=== PATIENT | male | born 1990 | race Caucasian/White ===

== ENCOUNTER 2019-10-20 01:07 | Emergency (ER) | payer SELFPAY ==
--- NOTE | 2019-10-20 01:57 | ER ---
Nurse's Notes [facility] Name: Enrique Fuentes Age: 29 yrs Sex: Male : 1990 Arrival Date: 10/20/2019 Time: 01:07 Bed 18 Private MD: Diagnosis: Presentation: 10/19 01:17 Chief complaint: Patient states: I started having pain in my right testicle about 30 tl1 minutes ago. I think I have a testicular torsion. Coronavirus screen: Proceed with normal triage. Patient denies a cough. Patient denies shortness of breath or difficulty breathing. Patient denies measured and/or subjective temperature greater than 100.4F prior to today's visit. Patient denies travel on a cruise ship or to a country the [facility] currently lists as an affected area. Patient denies contact with known and/or suspected case of COVID-19. Ebola Screen: Patient negative for fever greater than or equal to 101.5 degrees Fahrenheit, and additional compatible Ebola Virus Disease symptoms Patient denies exposure to infectious person. Patient denies travel to an Ebola-affected area in the 21 days before illness onset. Initial Sepsis Screen: Does the patient meet any 2 criteria? No. Patient's initial sepsis screen is negative. Does the patient have a suspected source of infection? No. Patient's initial sepsis screen is negative. Risk Assessment: Do you want to hurt yourself or someone else? Patient reports no desire to harm self or others. Onset of symptoms was October 20, 2019. 01:17 Method Of Arrival: Ambulatory tl1 01:17 Acuity: RASHID 3 tl1 Historical: - Allergies: 01:20 No Known Allergies; tl1 - PMHx: 01:20 Anxiety; paranoia; tl1 - PSHx: 01:20 None; tl1 - Immunization history:: Adult Immunizations up to date. - Social history:: Smoking status: Patient reports the use of cigarette tobacco products, smokes one pack cigarettes per day. Patient uses street drugs, marijuana. - Family history:: not pertinent. Screenin:30 Abuse screen: Denies threats or abuse. Denies injuries from another. Nutritional mg2 screening: No deficits noted. Tuberculosis screening: No symptoms or risk factors identified. Fall Risk None identified. Total Flowers Fall Scale indicates No Risk (0-24 pts). Assessment: 01:20 General: Appears in no apparent distress. uncomfortable, Behavior is calm, cooperative, rr5 appropriate for age. 01:20 Pain: Complains of pain in testicle Quality of pain is described as aching, Pain began rr5 suddenly, 30 min ago. Is intermittent. Neuro: Level of Consciousness is awake, alert, obeys commands, Oriented to person, place, time, situation. Cardiovascular: Capillary refill < 3 seconds Patient's skin is warm and dry. Respiratory: Airway is patent Respiratory effort is even, unlabored, Respiratory pattern is regular, symmetrical. GI: No signs and/or symptoms were reported involving the gastrointestinal system. : Reports Scrotal pain: sudden onset. EENT: No signs and/or symptoms were reported regarding the EENT system. Derm: Skin is intact, is healthy with good turgor, Skin temperature is warm. Musculoskeletal: Circulation, motion, and sensation intact. Capillary refill < 3 seconds. 01:56 Reassessment: patient stated I feel fine now, I don't want to continue the ultrasound rr5 procedure. I want to go home now. CN aware, explained for the AMA, patient signed and agreed. 02:35 Reassessment: patient came back, ambulatory awake and oriented. awaiting for ultrasound rr5 procedure. Vital Signs: 01:19 BP 120 / 88; Pulse 85; Resp 16; Temp 98.2(O); Pulse Ox 98% ; Weight 95.25 kg; Height 5 tl1 ft. 11 in. (180.34 cm); Pain 2/10; 01:19 Body Mass Index 29.29 (95.25 kg, 180.34 cm) tl1 ED Course: 01:07 Patient arrived in ED. ds1 01:10 Bebeto Abdalla MD is Attending Physician. fanta 01:14 Gordy Nevarez, RN is Primary Nurse. rr5 01:19 Triage completed. tl1 01:20 Patient has correct armband on for positive identification. rr5 01:21 Arm band placed on right wrist. tl1 01:55 No provider procedures requiring assistance completed. Patient did not have IV access rr5 during this emergency room visit. 02:29 Primary Nurse role handed off by Gordy Nevarez, RN tl1 02:33 Gordy Nevarez, RN is Primary Nurse. rr5 Administered Medications: No medications were administered Outcome: 01:55 AMA AMA form signed rr5 01:55 Condition: stable 01:55 Discharge instructions given to patient, Instructed on AMA Demonstrated understanding of AMA 02:08 Patient left the ED. rr5 03:04 Patient left the ED. tl1 Signatures: Bebeto Abdalla MD MD cha Sanford, Demi ds1 Elinor Berrios RN RN tl1 Wilbert Porras RN RN mg2 Gordy Nevarez RN RN rr5 Corrections: (The following items were deleted from the chart) 02:01 01:56 Reassessment: patient stated I feel fine now, I don't want to continue the rr5 ultrasound procedure. I want to go home now. CN aware, explained for the AMA, patient signed and agreed. mg2
--- NOTE | 2019-10-20 01:57 | EDPHYS ---
Physician Documentation [facility] Name: Enrique Fuentes Age: 29 yrs Sex: Male : 1990 Arrival Date: 10/20/2019 Time: 01:07 Bed 18 Private MD: ED Physician Bebeto Abdalla HPI: 10/19 01:23 This 29 yrs old Male presents to ER via Ambulatory with complaints of fanta Testicular Pain. 01:23 The patient presents with scrotal pain, tenderness, that is moderate, of the right fanta testicle. Onset: The symptoms/episode began/occurred just prior to arrival. Modifying factors: The symptoms are alleviated by nothing, the symptoms are aggravated by nothing. Associated signs and symptoms: The patient has no apparent associated signs or symptoms. Severity of symptoms: At their worst the symptoms were mild, moderate, in the emergency department the symptoms are unchanged. The patient has not experienced similar symptoms in the past. Historical: - Allergies: 01:20 No Known Allergies; tl1 - PMHx: 01:20 Anxiety; paranoia; tl1 - PSHx: 01:20 None; tl1 - Immunization history:: Adult Immunizations up to date. - Social history:: Smoking status: Patient reports the use of cigarette tobacco products, smokes one pack cigarettes per day. Patient uses street drugs, marijuana. - Family history:: not pertinent. ROS: 01:23 Constitutional: Negative for fever, chills, and weight loss, Eyes: Negative for injury, fanta pain, redness, and discharge, ENT: Negative for injury, pain, and discharge, Neck: Negative for injury, pain, and swelling, Cardiovascular: Negative for chest pain, palpitations, and edema, Respiratory: Negative for shortness of breath, cough, wheezing, and pleuritic chest pain, Abdomen/GI: Negative for abdominal pain, nausea, vomiting, diarrhea, and constipation, Back: Negative for injury and pain, MS/Extremity: Negative for injury and deformity, Skin: Negative for injury, rash, and discoloration, Neuro: Negative for headache, weakness, numbness, tingling, and seizure, Psych: Negative for depression, anxiety, suicide ideation, homicidal ideation, and hallucinations, Allergy/Immunology: Negative for hives, rash, and allergies, Endocrine: Negative for neck swelling, polydipsia, polyuria, polyphagia, and marked weight changes, Hematologic/Lymphatic: Negative for swollen nodes, abnormal bleeding, and unusual bruising. :23 : Positive for testicular pain of the right testicle. Exam: :23 Constitutional: This is a well developed, well nourished patient who is awake, alert, fanta and in no acute distress. Head/Face: Normocephalic, atraumatic. Eyes: Pupils equal round and reactive to light, extra-ocular motions intact. Lids and lashes normal. Conjunctiva and sclera are non-icteric and not injected. Cornea within normal limits. Periorbital areas with no swelling, redness, or edema. ENT: Nares patent. No nasal discharge, no septal abnormalities noted. Tympanic membranes are normal and external auditory canals are clear. Oropharynx with no redness, swelling, or masses, exudates, or evidence of obstruction, uvula midline. Mucous membranes moist. Neck: Trachea midline, no thyromegaly or masses palpated, and no cervical lymphadenopathy. Supple, full range of motion without nuchal rigidity, or vertebral point tenderness. No Meningismus. Chest/axilla: Normal chest wall appearance and motion. Nontender with no deformity. No lesions are appreciated. Cardiovascular: Regular rate and rhythm with a normal S1 and S2. No gallops, murmurs, or rubs. Normal PMI, no JVD. No pulse deficits. Respiratory: Lungs have equal breath sounds bilaterally, clear to auscultation and percussion. No rales, rhonchi or wheezes noted. No increased work of breathing, no retractions or nasal flaring. Abdomen/GI: Soft, non-tender, with normal bowel sounds. No distension or tympany. No guarding or rebound. No evidence of tenderness throughout. Back: No spinal tenderness. No costovertebral tenderness. Full range of motion. Skin: Warm, dry with normal turgor. Normal color with no rashes, no lesions, and no evidence of cellulitis. MS/ Extremity: Pulses equal, no cyanosis. Neurovascular intact. Full, normal range of motion. Neuro: Awake and alert, GCS 15, oriented to person, place, time, and situation. Cranial nerves II-XII grossly intact. Motor strength 5/5 in all extremities. Sensory grossly intact. Cerebellar exam normal. Normal gait. Psych: Awake, alert, with orientation to person, place and time. Behavior, mood, and affect are within normal limits. 01:23 : CVA tenderness, is absent, Male external genitalia: normal, Circumcision noted. Bladder: is normal, non-distended, Sexual behavior: the patient is sexually active, and reports a single partner. Vital Signs: 01:19 BP 120 / 88; Pulse 85; Resp 16; Temp 98.2(O); Pulse Ox 98% ; Weight 95.25 kg; Height 5 tl1 ft. 11 in. (180.34 cm); Pain 2/10; 01:19 Body Mass Index 29.29 (95.25 kg, 180.34 cm) tl1 MDM: 01:10 Patient medically screened. [facility] 01:26 Data reviewed: vital signs, nurses notes, lab test result(s), radiologic studies, [facility] ultrasound. Data interpreted: site monitor: rate is 85 beats/min. Test interpretation: by ED physician or midlevel provider: not applicable. Counseling: I had a detailed discussion with the patient and/or guardian regarding: the historical points, exam findings, and any diagnostic results supporting the discharge/admit diagnosis, lab results. 10/19 02:00 Order name: Urine Dipstick--Ancillary (enter results) ar5 10/19 01:23 Order name: Urine Dipstick-Ancillary (obtain specimen); Complete Time: 02:01 [facility] Administered Medications: No medications were administered Disposition: 10/20/19 03:03 Patient has left against medical advice. - Patients states they are going to Home. - Condition is Stable. Signatures: Dispatcher [employer] EDNM Bebeto Abdalla MD MD cha Lasagna, Tonya, RN RN tl1 Gordy Nevarez RN RN rr5 Misa Torres ar5 Corrections: (The following items were deleted from the chart) 02:08 01:56 10/20/2019 01:56 Patients has left against medical advice. Patient states they rr5 are going to Home. Condition is Stable. Discharge Instructions: Testicular Self-Exam, Testicular Self-Exam, [id number]. Prescriptions for Ibuprofen 600 mg Oral Tablet - take 1 tablet by ORAL route every 6 hours As needed take with food; 20 tablet tl1 02:29 02:08 10/20/2019 01:56 Patients has left against medical advice. Patient states they tl1 are going to Home. Condition is Stable. Discharge Instructions: Testicular Self-Exam, Testicular Self-Exam, [id number]. Prescriptions for Ibuprofen 600 mg Oral Tablet - take 1 tablet by ORAL route every 6 hours As needed take with food; 20 tablet rr5 03:04 03:03 10/20/2019 03:03 Patients has left against medical advice. Patient states they tl1 are going to Home. Condition is Stable. Prescriptions for Ibuprofen 600 mg Oral Tablet - take 1 tablet by ORAL route every 6 hours As needed take with food; 20 tablet ar5
[2019-10-20 02:03] LABS: Urine Blood 2+ (NEG); Urine Glucose NEGATIVE (NEG); Urine Protein NEGATIVE (NEG); Urine Specific Gravity >1.030 (1.005-1.030); Urine pH 5.5 (5.0-7.0)
[2019-10-20 02:13] VITALS: BP 120/88; TEMP 98.2; O2SAT 98
== END 2019-10-20 03:04 | disposition left against medical advice (07) ==
LOC: ER 01:07
DX: N50.811 Right testicular pain (principal); F17.210 Nicotine dependence, cigarettes, uncomplicated
CPT/HCPCS: 81003; 99281

== ENCOUNTER 2019-10-20 03:03 | Emergency (ER) | payer SELFPAY ==
--- NOTE | 2019-10-20 03:37 | ER ---
Nurse's Notes [facility] Name: Enrique Fuentes Age: 29 yrs Sex: Male : 1990 Arrival Date: 10/20/2019 Time: 03:05 Bed 18 Private MD: Diagnosis: Contusion of scrotum and testes-small left epididymal cyst Presentation: 10/19 02:35 Chief complaint: Patient states: I started having pain in my right testicle about 0050H rr5 I think I have a testicular torsion. 02:35 Coronavirus screen: Proceed with normal triage. Ebola Screen: Patient negative for rr5 fever greater than or equal to 101.5 degrees Fahrenheit, and additional compatible Ebola Virus Disease symptoms Patient denies exposure to infectious person. Patient denies travel to an Ebola-affected area in the 21 days before illness onset. Initial Sepsis Screen: Does the patient meet any 2 criteria? No. Patient's initial sepsis screen is negative. Does the patient have a suspected source of infection? No. Patient's initial sepsis screen is negative. Risk Assessment: Do you want to hurt yourself or someone else? Patient reports no desire to harm self or others. Onset of symptoms was October 20, 2019. 02:35 Method Of Arrival: Ambulatory rr5 02:35 Acuity: RASHID 4 rr5 Historical: - Allergies: 02:35 No Known Allergies; rr5 - PMHx: 02:35 Anxiety; Paranoia; rr5 - Immunization history:: Adult Immunizations up to date. - Social history:: Smoking status: Patient reports the use of cigarette tobacco products, smokes one pack cigarettes per day. Patient uses street drugs, marijuana. Screenin:13 Abuse screen: Denies threats or abuse. Denies injuries from another. Nutritional rr5 screening: No deficits noted. Tuberculosis screening: No symptoms or risk factors identified. Fall Risk None identified. Total Flowers Fall Scale indicates No Risk (0-24 pts). Assessment: 02:35 General: Appears in no apparent distress. comfortable, Behavior is calm, cooperative, rr5 appropriate for age, came back from [facility] with the same complaint. 02:35 Pain: Complains of pain in right testicle Pain does not radiate. Pain currently is 2 rr5 out of 10 on a pain scale. Quality of pain is described as numb, Pain began suddenly, Is intermittent. Neuro: Level of Consciousness is awake, alert, obeys commands, Oriented to person, place, time, situation, Appropriate for age. Cardiovascular: Capillary refill < 3 seconds Patient's skin is warm and dry. Respiratory: Airway is patent Respiratory effort is even, unlabored, Respiratory pattern is regular, symmetrical. GI: No signs and/or symptoms were reported involving the gastrointestinal system. : Reports Scrotal pain: sudden onset. EENT: No signs and/or symptoms were reported regarding the EENT system. Derm: Skin is intact, is healthy with good turgor, Skin temperature is warm. Musculoskeletal: Circulation, motion, and sensation intact. Capillary refill < 3 seconds. 03:18 Reassessment: Patient appears in no apparent distress at this time. ultrasound at rr5 bedside. 03:41 Reassessment: Patient appears in no apparent distress at this time. Patient is alert, rr5 oriented x 3, equal unlabored respirations, skin warm/dry/pink. discharge instruction given and explained without complaints made. Vital Signs: 02:35 BP 121 / 75; Pulse 80; Resp 16; Temp 98.2; Pulse Ox 99% ; Weight 95 kg; Height 5 ft. 11 rr5 in. (180.34 cm); Pain 0/10; 03:30 BP 117 / 70; Pulse 75; Resp 17; Pulse Ox 98% ; rr5 02:35 Body Mass Index 29.21 (95.00 kg, 180.34 cm) rr5 ED Course: 02:35 Arm band placed on right wrist. rr5 02:35 Patient has correct armband on for positive identification. Bed in low position. Call rr5 light in reach. 03:05 Patient arrived in ED. ds1 03:05 Gordy Nevarez, GRACIE is Primary Nurse. rr5 03:10 Triage completed. rr5 03:11 Bebeto Abdalla MD is Attending Physician. fanta 03:33 US Scrotum Testicles In Process Unspecified. EDMS 03:33 Ultrasound completed. Patient tolerated well. Notified ED Physician maggie. sg3 03:36 Leana Richardson MD is Referral Physician. fanta 03:42 No provider procedures requiring assistance completed. Patient did not have IV access rr5 during this emergency room visit. Administered Medications: No medications were administered Outcome: 03:37 Discharge ordered by . fanta 03:42 Discharged to home ambulatory. rr5 03:42 Condition: stable 03:42 Discharge instructions given to patient, Instructed on discharge instructions, follow up and referral plans. medication usage, Demonstrated understanding of instructions, follow-up care, medications, Prescriptions given X 1. 03:43 Patient left the ED. rr5 Signatures: Dispatcher [employer] EDVA Bebeto Abdalla MD MD cha Sanford, Demi ds1 Beatris Nguyễn 3 Gordy Nevarez, RN RN rr5
--- NOTE | 2019-10-20 03:37 | EDPHYS ---
Physician Documentation [facility] Name: Enrique Fuentes Age: 29 yrs Sex: Male : 1990 Arrival Date: 10/20/2019 Time: 03:05 Bed 18 Private MD: POLA Physician Bebeto Abdalla HPI: 10/19 03:24 This 29 yrs old Male presents to ER via Ambulatory with complaints of fanta Testicular Pain. 03:24 The patient presents with scrotal pain, of the right side. Onset: The symptoms/episode fanta began/occurred just prior to arrival, yesterday. Modifying factors: The symptoms are alleviated by remaining still, the symptoms are aggravated by movement. Associated signs and symptoms: The patient has no apparent associated signs or symptoms. Severity of symptoms: At their worst the symptoms were moderate, in the emergency department the symptoms are unchanged. The patient has not experienced similar symptoms in the past. Historical: - Allergies: 02:35 No Known Allergies; rr5 - PMHx: 02:35 Anxiety; Paranoia; rr5 - Immunization history:: Adult Immunizations up to date. - Social history:: Smoking status: Patient reports the use of cigarette tobacco products, smokes one pack cigarettes per day. Patient uses street drugs, marijuana. ROS: 03:30 Constitutional: Negative for fever, chills, and weight loss, Eyes: Negative for injury, fanta pain, redness, and discharge, ENT: Negative for injury, pain, and discharge, Neck: Negative for injury, pain, and swelling, Cardiovascular: Negative for chest pain, palpitations, and edema, Respiratory: Negative for shortness of breath, cough, wheezing, and pleuritic chest pain, Abdomen/GI: Negative for abdominal pain, nausea, vomiting, diarrhea, and constipation, Back: Negative for injury and pain, MS/Extremity: Negative for injury and deformity, Skin: Negative for injury, rash, and discoloration, Neuro: Negative for headache, weakness, numbness, tingling, and seizure, Psych: Negative for depression, anxiety, suicide ideation, homicidal ideation, and hallucinations, Allergy/Immunology: Negative for hives, rash, and allergies, Endocrine: Negative for neck swelling, polydipsia, polyuria, polyphagia, and marked weight changes, Hematologic/Lymphatic: Negative for swollen nodes, abnormal bleeding, and unusual bruising. 03:30 : Positive for testicular pain of the right testicle. 03:30 : Positive for Exam: 03:30 Constitutional: This is a well developed, well nourished patient who is awake, alert, fanta and in no acute distress. Head/Face: Normocephalic, atraumatic. Eyes: Pupils equal round and reactive to light, extra-ocular motions intact. Lids and lashes normal. Conjunctiva and sclera are non-icteric and not injected. Cornea within normal limits. Periorbital areas with no swelling, redness, or edema. ENT: Nares patent. No nasal discharge, no septal abnormalities noted. Tympanic membranes are normal and external auditory canals are clear. Oropharynx with no redness, swelling, or masses, exudates, or evidence of obstruction, uvula midline. Mucous membranes moist. Neck: Trachea midline, no thyromegaly or masses palpated, and no cervical lymphadenopathy. Supple, full range of motion without nuchal rigidity, or vertebral point tenderness. No Meningismus. Chest/axilla: Normal chest wall appearance and motion. Nontender with no deformity. No lesions are appreciated. Cardiovascular: Regular rate and rhythm with a normal S1 and S2. No gallops, murmurs, or rubs. Normal PMI, no JVD. No pulse deficits. Respiratory: Lungs have equal breath sounds bilaterally, clear to auscultation and percussion. No rales, rhonchi or wheezes noted. No increased work of breathing, no retractions or nasal flaring. Abdomen/GI: Soft, non-tender, with normal bowel sounds. No distension or tympany. No guarding or rebound. No evidence of tenderness throughout. Back: No spinal tenderness. No costovertebral tenderness. Full range of motion. Skin: Warm, dry with normal turgor. Normal color with no rashes, no lesions, and no evidence of cellulitis. MS/ Extremity: Pulses equal, no cyanosis. Neurovascular intact. Full, normal range of motion. Neuro: Awake and alert, GCS 15, oriented to person, place, time, and situation. Cranial nerves II-XII grossly intact. Motor strength 5/5 in all extremities. Sensory grossly intact. Cerebellar exam normal. Normal gait. Psych: Awake, alert, with orientation to person, place and time. Behavior, mood, and affect are within normal limits. 03:30 : CVA tenderness, is absent, Male external genitalia: Circumcision noted. Bladder: is normal, Sexual behavior: the patient is not sexually active. Vital Signs: 02:35 BP 121 / 75; Pulse 80; Resp 16; Temp 98.2; Pulse Ox 99% ; Weight 95 kg; Height 5 ft. 11 rr5 in. (180.34 cm); Pain 0/10; 03:30 BP 117 / 70; Pulse 75; Resp 17; Pulse Ox 98% ; rr5 02:35 Body Mass Index 29.21 (95.00 kg, 180.34 cm) rr5 MDM: 03:12 Patient medically screened. [facility] 03:32 Differential diagnosis: nonspecific abdominal pain. Data reviewed: vital signs, nurses [facility] notes, lab test result(s), urinalysis. 03:33 Data interpreted: surveillance system monitor: not applicable for this patient encounter. Pulse [facility] oximetry: on room air is 99 %. Counseling: I had a detailed discussion with the patient and/or guardian regarding: the historical points, exam findings, and any diagnostic results supporting the discharge/admit diagnosis, lab results, radiology results, the need for outpatient follow up, for definitive care, a urologist. ED course: us was negative for torsion, small left epididymal cyst ow negative. 03:38 Test interpretation: by ED physician or midlevel provider: testicle usg. ED course: 2+ [facility] blood ow negative. 10/19 03:33 Order name: Urine Culture [facility] 10/19 03:06 Order name: US Scrotum Testicles ar5 10/19 03:33 Order name: Urine Dipstick-Ancillary (obtain specimen); Complete Time: 03:35 [facility] Administered Medications: No medications were administered Disposition: 10/20/19 03:37 Discharged to Home. Impression: Contusion of scrotum and testes - small left epididymal cyst. - Condition is Stable. - Discharge Instructions: Contusion, Testicular Self-Exam, Contusion, [id number], Testicular Self-Exam, [id number]. - Prescriptions for Ibuprofen 600 mg Oral Tablet - take 1 tablet by ORAL route every 6 hours As needed take with food; 20 tablet. - Medication Reconciliation Form, Thank You Letter, Antibiotic Education, Prescription Opioid Use form. - Follow up: Private Physician; When: 2 - 3 days; Reason: Recheck today's complaints, Continuance of care, Re-evaluation by your physician. Follow up: Leana Richardson MD; When: 2 - 3 days; Reason: Recheck today's complaints, Re-evaluation by your physician. - Problem is new. - Symptoms have improved. Signatures: Dispatcher [employer] Bebeto Segura MD MD cha Roque, Raymond, RN RN rr5 Corrections: (The following items were deleted from the chart) 03:43 03:37 10/20/2019 03:37 Discharged to Home. Impression: Contusion of scrotum and testes rr5 - small left epididymal cyst. Condition is Stable. Forms are Medication Reconciliation Form, Thank You Letter, Antibiotic Education, Prescription Opioid Use. Follow up: Private Physician; When: 2 - 3 days; Reason: Recheck today's complaints, Continuance of care, Re-evaluation by your physician. Follow up: Leana Richardson; When: 2 - 3 days; Reason: Recheck today's complaints, Re-evaluation by your physician. Problem is new. Symptoms have improved. fanta
[2019-10-20 04:10] VITALS: BP 117/70; O2SAT 98
--- NOTE | 2019-10-20 09:37 | RAD REPORT ---
EXAM DESCRIPTION: US - Scrotum Testicles - 10/20/2019 3:33 am CLINICAL HISTORY: Right testicular pain COMPARISON: None FINDINGS: Right testicle measures 4.4 x 2 x 2.7 centimeters. Echotexture is homogeneous. Normal bloo d flow Left testicle measures 4.1 x 1.8 x 3.1 centimeters. Echotexture is homogeneous. Normal blood flow Right epididymis in size and echotexture. Normal blood flow is seen. 1.9 centimeter left spermatocele. Normal blood flow left epididymis Physiologic small hydroceles IMPRESSION: 1.9 centimeter left spermatocele
== END 2019-10-20 03:43 | disposition home or self-care (01) ==
LOC: ER 03:03
DX: S30.22XA Contusion of scrotum and testes, initial encounter (principal); N50.3 Cyst of epididymis; F17.210 Nicotine dependence, cigarettes, uncomplicated
CPT/HCPCS: 76870; 87086; 87088; 99283

== ENCOUNTER 2019-10-24 22:40 | Emergency (ER) | payer SELFPAY ==
[2019-10-24] MEDS ORDERED: ONDANSETRON 4 MG/2 ML VIAL ONE (23:54)
[2019-10-24] MEDS ORDERED: NA CHLORIDE 0.9% 1,000 ML ONE (23:54)
[2019-10-24] MEDS ORDERED: KETOROLAC 30 MG/ML INJ ONE (23:54)
[2019-10-24 23:59] LABS: Absolute Lymphocytes (CBC) 2.9 K/uL (0.7-4.9); Basophils % 0.7 % (0-1.3); Hematocrit 47.4 % (39.6-49.0); Lymphocytes % 24.1 % (15.3-44.8); MPV 7.7 fL (7.6-11.3); RBC Red Blood Cell Count 5.22 M/uL (4.33-5.43)
[2019-10-25 00:10] LABS: ALT/SGPT 38 U/L (12-78); AST/SGOT 19 U/L (15-37); Alkaline Phosphatase 75 U/L (45-117); BUN Blood Urea Nitrogen 17 mg/dL (7-18); Bicarbonate 27 mmol/L (21-32); Bilirubin Total 0.2 mg/dL (0.2-1.0); Glucose Level 109 mg/dL (74-106); Potassium 3.7 mmol/L (3.5-5.1); Protein, Total 8.8 g/dL (6.4-8.2); Sodium Level 141 mmol/L (136-145)
[2019-10-25 00:24] LABS: Urine Blood 1+ (NEG); Urine Glucose NEGATIVE (NEG); Urine Protein NEGATIVE (NEG); Urine Specific Gravity >1.030 (1.005-1.030); Urine pH 5.5 (5.0-7.0)
--- NOTE | 2019-10-25 00:54 | ER ---
Nurse's Notes [facility] Name: Enrique Fuentes Age: 29 yrs Sex: Male : 1990 Arrival Date: 10/24/2019 Time: 22:44 Bed 23 Private MD: Diagnosis: Abdominal tenderness;Paranoid schizophrenia Presentation: 10/23 22:54 Chief complaint: Patient states: Bilateral flank pain for a couple days worse on the sg left side, reports maybe a kidney stone, pt denies any N/V/D/Fever at home, just complaining of pain in the flanks at this time. Coronavirus screen: Proceed with normal triage. Ebola Screen: Patient negative for fever greater than or equal to 101.5 degrees Fahrenheit, and additional compatible Ebola Virus Disease symptoms Patient denies exposure to infectious person. Patient denies travel to an Ebola-affected area in the 21 days before illness onset. No symptoms or risks identified at this time. Initial Sepsis Screen: Does the patient meet any 2 criteria? HR > 90 bpm. No. Patient's initial sepsis screen is negative. Does the patient have a suspected source of infection? No. Patient's initial sepsis screen is negative. Risk Assessment: Do you want to hurt yourself or someone else? Patient reports no desire to harm self or others. Onset of symptoms was October 24, 2019. Care prior to arrival: None. Transition of care: patient was not received from another setting of care. 22:54 Method Of Arrival: Ambulatory 22:54 Acuity: RASHID 3 sg Triage Assessment: 23:08 General: Appears in no apparent distress. comfortable, Behavior is anxious, restless, ls4 uncooperative. Pain: Pain currently is 10 out of 10 on a pain scale. Quality of pain is described as PT FLACC PAIN SCORE IS 0. Respiratory: Airway is patent Respiratory effort is even, unlabored, Respiratory pattern is regular. GI: Abdomen is non-distended, Bowel sounds present X 4 quads. Abd is soft and non tender X 4 quads. Historical: - Allergies: 22:56 No Known Allergies; sg - Home Meds: 22:56 quetiapine oral oral [Active]; Benztropine Mesylate Oral [Active]; sg - PMHx: 22:56 Anxiety; Paranoia; sg - PSHx: 22:56 None; sg - Immunization history:: Adult Immunizations up to date. - Social history:: Smoking status: Patient denies any tobacco usage or history of. - Family history:: not pertinent. Screenin:09 Abuse screen: Denies threats or abuse. Denies injuries from another. Nutritional ls4 screening: No deficits noted. Tuberculosis screening: No symptoms or risk factors identified. Fall Risk None identified. Assessment: 23:09 Reassessment: SEE TRIAGE NOTE. General: Appears in no apparent distress. comfortable. ls4 Derm: Skin is pink, warm \T\ dry. Musculoskeletal: No deficits noted. 23:20 Reassessment: PT VERY FEARFUL, REFUSED IV AND WANTED TO GO HOME DR GONZALES CALLED TO ls4 ROOM AND HELPED CALM PT FEAR AND PT AGREED TO STAY AND BE EVALUATED. 10/24 00:30 Reassessment: Patient appears in no apparent distress at this time. Patient and/or ls4 family updated on plan of care and expected duration. Pain level reassessed. Patient is alert, oriented x 3, equal unlabored respirations, skin warm/dry/pink. Patient states symptoms have improved. Vital Signs: 10/23 22:54 BP 140 / 70; Pulse 130; Resp 18; Temp 99.0; Pulse Ox 100% on R/A; Pain 10/10; sg 10/24 00:17 BP 138 / 74; Pulse 128; Resp 19; Temp 98.9(O); Pulse Ox 99% on R/A; Pain 5/10; ls4 ED Course: 10/23 22:44 Patient arrived in ED. cl3 22:55 Triage completed. sg 22:56 Arm band placed on. sg 22:57 Bebeto Gonzales MD is Attending Physician. fanta 23:06 Patricia Michel, GRACIE is Primary Nurse. ls4 23:40 No provider procedures requiring assistance completed. Inserted saline lock: 18 gauge ls4 in right antecubital area, using aseptic technique. Blood collected. 23:40 Initial lab(s) drawn, by me, sent to lab. Urine collected: clean catch specimen, clear. ls4 Patient maintains SpO2 saturation greater than 95% on room air. 10/24 00:36 CT Stone Protocol In Process Unspecified. EDMS 00:53 Leana Richardson MD is Referral Physician. fanta 01:03 IV discontinued, intact, bleeding controlled, No redness/swelling at site. Pressure ls4 dressing applied. Administered Medications: 05/21 23:40 Drug: NS 0.9% 1000 ml Route: IV; Rate: 1 bolus; Site: right antecubital; ls4 23:40 Drug: TORadol 30 mg Route: IVP; Site: right antecubital; ls4 10/24 00:10 Follow up: Response: No adverse reaction; Marked relief of symptoms ls4 10/23 23:40 Drug: Zofran (Ondansetron) 4 mg Route: IVP; Site: right antecubital; ls4 10/24 00:10 Follow up: Response: No adverse reaction; Marked relief of symptoms ls4 Outcome: 00:53 Discharge ordered by . fanta 00:59 Patient left the ED. sg 01:02 Discharged to home ambulatory. 4 01:02 Condition: good 01:02 Discharge instructions given to patient, Instructed on discharge instructions, follow up and referral plans. medication usage, safety practices, Demonstrated understanding of instructions, follow-up care, medications. Signatures: Dispatcher [employer] EDMS Jose Garcia RN RN sg Anderson, Corey, MD MD cha Stewart, Lisa, RN RN Flako Mazariegos cl3 Corrections: (The following items were deleted from the chart) 10/23 23:29 22:54 Chief complaint: Patient states: Bilateral flank pain for a couple days, reports sg maybe a kidney stone, pt denies any N/V/D/Fever at home, just complaining of pain in the flanks at this time sg
--- NOTE | 2019-10-25 00:54 | EDPHYS ---
Physician Documentation [facility] Name: Enrique Fuentes Age: 29 yrs Sex: Male : 1990 Arrival Date: 10/24/2019 Time: 22:44 Bed 23 Private MD: ED Physician Bebeto Abdalla HPI: 10/23 23:05 This 29 yrs old Male presents to ER via Ambulatory with complaints of fanta Possible Kidney Stone. 23:05 The patient presents with abdominal pain in the left lower quadrant, abdominal fanta distention in the upper abdomen, in the lower abdomen. Onset: The symptoms/episode began/occurred today. The patient complains of pain in the left low back and left mid back. The pain radiates to the left low back and left mid back. Onset: The symptoms/episode began/occurred this morning. Modifying factors: The symptoms are alleviated by nothing. the symptoms are aggravated by nothing. The symptoms radiate to the left flank. Associated signs and symptoms: The patient has no apparent associated signs or symptoms. Associated signs and symptoms: none. Modifying factors: The symptoms are alleviated by nothing, the symptoms are aggravated by nothing. Historical: - Allergies: 22:56 No Known Allergies; sg - Home Meds: 22:56 quetiapine oral oral [Active]; Benztropine Mesylate Oral [Active]; sg - PMHx: 22:56 Anxiety; Paranoia; sg - PSHx: 22:56 None; sg - Immunization history:: Adult Immunizations up to date. - Social history:: Smoking status: Patient denies any tobacco usage or history of. - Family history:: not pertinent. ROS: 23:05 Constitutional: Negative for fever, chills, and weight loss, Eyes: Negative for injury, fanta pain, redness, and discharge, ENT: Negative for injury, pain, and discharge, Neck: Negative for injury, pain, and swelling, Cardiovascular: Negative for chest pain, palpitations, and edema, Respiratory: Negative for shortness of breath, cough, wheezing, and pleuritic chest pain, Abdomen/GI: Negative for abdominal pain, nausea, vomiting, diarrhea, and constipation, Back: Negative for injury and pain, MS/Extremity: Negative for injury and deformity, Skin: Negative for injury, rash, and discoloration, Neuro: Negative for headache, weakness, numbness, tingling, and seizure, Psych: Negative for depression, anxiety, suicide ideation, homicidal ideation, and hallucinations, Allergy/Immunology: Negative for hives, rash, and allergies, Endocrine: Negative for neck swelling, polydipsia, polyuria, polyphagia, and marked weight changes, Hematologic/Lymphatic: Negative for swollen nodes, abnormal bleeding, and unusual bruising. 23:05 : Positive for flank pain, urinary frequency, of the posterior aspect of left lateral abdomen and left lower quadrant. Exam: 23:05 Constitutional: This is a well developed, well nourished patient who is awake, alert, fanta and in no acute distress. Head/Face: Normocephalic, atraumatic. Eyes: Pupils equal round and reactive to light, extra-ocular motions intact. Lids and lashes normal. Conjunctiva and sclera are non-icteric and not injected. Cornea within normal limits. Periorbital areas with no swelling, redness, or edema. ENT: Nares patent. No nasal discharge, no septal abnormalities noted. Tympanic membranes are normal and external auditory canals are clear. Oropharynx with no redness, swelling, or masses, exudates, or evidence of obstruction, uvula midline. Mucous membranes moist. Neck: Trachea midline, no thyromegaly or masses palpated, and no cervical lymphadenopathy. Supple, full range of motion without nuchal rigidity, or vertebral point tenderness. No Meningismus. Chest/axilla: Normal chest wall appearance and motion. Nontender with no deformity. No lesions are appreciated. Cardiovascular: Regular rate and rhythm with a normal S1 and S2. No gallops, murmurs, or rubs. Normal PMI, no JVD. No pulse deficits. Respiratory: Lungs have equal breath sounds bilaterally, clear to auscultation and percussion. No rales, rhonchi or wheezes noted. No increased work of breathing, no retractions or nasal flaring. Male : Normal genitalia with no discharge or lesions. Skin: Warm, dry with normal turgor. Normal color with no rashes, no lesions, and no evidence of cellulitis. MS/ Extremity: Pulses equal, no cyanosis. Neurovascular intact. Full, normal range of motion. Neuro: Awake and alert, GCS 15, oriented to person, place, time, and situation. Cranial nerves II-XII grossly intact. Motor strength 5/5 in all extremities. Sensory grossly intact. Cerebellar exam normal. Normal gait. Psych: Awake, alert, with orientation to person, place and time. Behavior, mood, and affect are within normal limits. 23:05 Abdomen/GI: Inspection: abdomen appears normal, Bowel sounds: normal, Palpation: mild abdominal tenderness, in the left lower quadrant, Liver: no appreciated palpable abnormalities, Hernia: not appreciated. Vital Signs: 22:54 BP 140 / 70; Pulse 130; Resp 18; Temp 99.0; Pulse Ox 100% on R/A; Pain 10/10; sg 10/24 00:17 BP 138 / 74; Pulse 128; Resp 19; Temp 98.9(O); Pulse Ox 99% on R/A; Pain 5/10; ls4 MDM: 10/23 22:59 Patient medically screened. [facility] 23:08 Data reviewed: vital signs, nurses notes, lab test result(s), radiologic studies, CT fanta scan. Data interpreted: vice president of product marketing: not applicable for this patient encounter. Pulse oximetry: on room air is 100 %. Counseling: I had a detailed discussion with the patient and/or guardian regarding: the historical points, exam findings, and any diagnostic results supporting the discharge/admit diagnosis, lab results, radiology results, the need for outpatient follow up, for definitive care, a urologist. 23:10 Differential diagnosis: nephrolithiasis, UTI, pancreatitis, gastritis, non-specific abd fanta pain, pancreatitis, Peptic Ulcer Disease, Ureterolithiasis. Medication response: Zofran markedly relieved the patient's nausea. 10/24 00:51 ED course: pain resolved, ct stone neg, results explained to the patient. [facility] 10/23 23:04 Order name: CBC with Diff; Complete Time: 00:51 [facility] 10/23 23:04 Order name: Comprehensive Metabolic Panel; Complete Time: 00:51 [facility] 10/23 23:04 Order name: CT Stone Protocol [facility] 10/24 00:08 Order name: Urine Dipstick--Ancillary (enter results); Complete Time: 00:51 mw2 10/23 23:04 Order name: Urine Dipstick-Ancillary (obtain specimen); Complete Time: 00:40 [facility] 10/24 00:40 Order name: IV; Complete Time: 00:40 sg Administered Medications: 10/23 23:40 Drug: NS 0.9% 1000 ml Route: IV; Rate: 1 bolus; Site: right antecubital; ls4 23:40 Drug: TORadol 30 mg Route: IVP; Site: right antecubital; ls4 10/24 00:10 Follow up: Response: No adverse reaction; Marked relief of symptoms ls4 10/23 23:40 Drug: Zofran (Ondansetron) 4 mg Route: IVP; Site: right antecubital; ls4 10/24 00:10 Follow up: Response: No adverse reaction; Marked relief of symptoms ls4 Disposition: 10/25/19 00:53 Discharged to Home. Impression: Abdominal tenderness, Paranoid schizophrenia. - Condition is Stable. - Discharge Instructions: Abdominal Pain, Adult, Abdominal Pain, Adult, [id number]. - Prescriptions for Bentyl 20 mg Oral Tablet - take 1 tablet by ORAL route every 6 hours As needed; 20 tablet. - Medication Reconciliation Form, Thank You Letter, Antibiotic Education, Prescription Opioid Use form. - Follow up: Private Physician; When: 2 - 3 days; Reason: Recheck today's complaints, Continuance of care, Re-evaluation by your physician. Follow up: Leana Richardson; When: 2 - 3 days; Reason: Recheck today's complaints, Re-evaluation by your physician. - Problem is new. - Symptoms have improved. Signatures: Dispatcher [employer] EDJose Tee RN RN sg Anderson, Corey, MD MD cha Stewart, Lisa, RN RN ls4 Corrections: (The following items were deleted from the chart) 00:59 00:53 10/25/2019 00:53 Discharged to Home. Impression: Abdominal tenderness; Paranoid sg schizophrenia. Condition is Stable. Discharge Instructions: Abdominal Pain, Adult, Abdominal Pain, Adult, [id number]. Prescriptions for Bentyl 20 mg Oral Tablet - take 1 tablet by ORAL route every 6 hours As needed; 20 tablet. and Forms are Medication Reconciliation Form, Thank You Letter, Antibiotic Education, Prescription Opioid Use. Follow up: Private Physician; When: 2 - 3 days; Reason: Recheck today's complaints, Continuance of care, Re-evaluation by your physician. Follow up: Leana Richardson; When: 2 - 3 days; Reason: Recheck today's complaints, Re-evaluation by your physician. Problem is new. Symptoms have improved. fanta
[2019-10-25 01:08] VITALS: BP 138/74; TEMP 98.9; O2SAT 99
--- NOTE | 2019-10-26 11:03 | RAD REPORT ---
EXAM DESCRIPTION: CT - Stone Protocol - 10/25/2019 12:36 am CLINICAL HISTORY: Bilateral flank pain, left greater than right TECHNIQUE: Contiguous axial images obtained through the abdomen and pelvis without IV contrast. Jad nal and sagittal reformatted images were provided. This exam was performed according to our departmental dose-optimization program, which includes autom ated exposure control, adjustment of the mA and/or kV according to patient size and/or use of iterati ve reconstruction technique. COMPARISON: None available for comparison. FINDINGS: Lung bases: Clear Liver: The liver is enlarged and diffusely low in density compatible with steatosis. Gallbladder and biliary system: Unremarkable Pancreas: Grossly unremarkable Spleen: Grossly unremarkable Adrenals: Unremarkable Kidneys: No calculi. No hydronephrosis. Bowel: No obstruction. No appreciable mucosal thickening. Appendix: Normal caliber appendix. No findings to suggest acute appendicitis. Urinary bladder: Unremarkable Reproductive: Unremarkable as visualized Lymph nodes: No pathologically enlarged lymph nodes. Peritoneum: No focal fluid collection. No free air. Vessels: No abdominal aortic aneurysm. Abdominal wall: Tiny fat-containing umbilical hernia. Bones: Unremarkable IMPRESSION: 1. No renal, ureteral or bladder calculi. No evidence for renal obstruction. 2. Other findings as above. Electronically signed by: Alba Gibbs MD 10/25/2019 12:45 AM CDT Due to temporary technical issues with the PACS/Fluency reporting system, reports are being signed by the in house radiologist as a courtesy to ensure prompt reporting. The interpreting radiologist is f ully responsible for the content of the report.
== END 2019-10-25 00:59 | disposition home or self-care (01) ==
LOC: ER 22:40
DX: R10.814 Left lower quadrant abdominal tenderness (principal); F20.0 Paranoid schizophrenia; F41.9 Anxiety disorder, unspecified
CPT/HCPCS: 36415; 74176; 76377; 80053; 81003; 85025; 96374; 96375; 99284; J2405; J7030

== ENCOUNTER 2019-10-29 01:22 | Emergency (ER) | payer SELFPAY ==
[2019-10-29] MEDS ORDERED: LORAZEPAM 1 MG TABLET ONE (01:49)
[2019-10-29 01:57] LABS: Protime INR 1.03
[2019-10-29 01:58] LABS: MPV 7.9 fL (7.6-11.3); RBC Red Blood Cell Count 4.89 M/uL (4.33-5.43)
[2019-10-29 02:11] LABS: ALT/SGPT 32 U/L (12-78); AST/SGOT 19 U/L (15-37); Albumin 3.8 g/dL (3.4-5.0); Alkaline Phosphatase 63 U/L (45-117); BUN Blood Urea Nitrogen 8 mg/dL (7-18); Bicarbonate 26 mmol/L (21-32); Bilirubin Total 0.2 mg/dL (0.2-1.0); Glucose Level 107 mg/dL (74-106); Potassium 3.9 mmol/L (3.5-5.1); Sodium Level 138 mmol/L (136-145)
[2019-10-29] MEDS ORDERED: TETANUS & DIPHTHERIA TOX,ADULT 0.5 ML VIAL ONE (02:22)
[2019-10-29 02:59] VITALS: O2SAT 100
[2019-10-29 03:01] VITALS: BP 121/68; TEMP 97.8
--- NOTE | 2019-11-04 12:53 | EDPHYS ---
Physician Documentation [facility] Name: Enrique Fuentes Age: 29 yrs Sex: Male : 1990 Arrival Date: 10/29/2019 Time: 01:23 Bed 6 Private MD: ED Physician Jerilyn Matthews HPI: 10/28 02:07 This 29 yrs old Male presents to ER via Ambulatory with complaints of Snake ma2 bite. 02:07 The patient was bitten on the right leg. Onset: The symptoms/episode began/occurred ma2 suddenly, 2 hour(s) ago. Secondary to the bite the patient reports an abrasion. Associated signs and symptoms: Pertinent negatives: fever, numbness distal to wound, suspected foreign body. Severity of symptoms: At their worst the symptoms were very mild, in the emergency department the symptoms have resolved. The patient has not experienced similar symptoms in the past. has right foot abrasion no signs of snake bite, he has no swelling or signs of infections. Historical: - Allergies: 01:24 No Known Allergies; sg - PMHx: 01:24 Anxiety; Paranoia; sg - PSHx: 01:24 None; sg - Immunization history:: Adult Immunizations unknown. - Social history:: Smoking status: Patient reports the use of cigarette tobacco products, Patient/guardian denies using alcohol, street drugs, The patient lives with family. - Family history:: not pertinent. ROS: 02:07 Constitutional: Negative for fever, chills, and weight loss. ma2 02:07 All other systems are negative. Exam: 02:07 Constitutional: This is a well developed, well nourished patient who is awake, alert, ma2 and in no acute distress. Chest/axilla: Normal chest wall appearance and motion. Nontender with no deformity. No lesions are appreciated. Cardiovascular: Regular rate and rhythm with a normal S1 and S2. No gallops, murmurs, or rubs. Normal PMI, no JVD. No pulse deficits. Respiratory: Lungs have equal breath sounds bilaterally, clear to auscultation and percussion. No rales, rhonchi or wheezes noted. No increased work of breathing, no retractions or nasal flaring. Abdomen/GI: Soft, non-tender, with normal bowel sounds. No distension or tympany. No guarding or rebound. No evidence of tenderness throughout. Skin: Warm, dry with normal turgor. Normal color with no rashes, no lesions, and no evidence of cellulitis. MS/ Extremity: Pulses equal, no cyanosis. Neurovascular intact. Full, normal range of motion. Neuro: Awake and alert, GCS 15, oriented to person, place, time, and situation. Cranial nerves II-XII grossly intact. Motor strength 5/5 in all extremities. Sensory grossly intact. Cerebellar exam normal. Normal gait. Vital Signs: 01:28 BP 117 / 60; Pulse 108; Resp 16; Temp 97.7; Pulse Ox 100% on R/A; Pain 6/10; sg 02:47 BP 121 / 68; Pulse 89; Resp 16; Temp 97.8; Pulse Ox 100% on R/A; rv MDM: 01:27 Patient medically screened. [facility] 02:07 Differential diagnosis: superficial laceration, tendon injury, vascular injury, ma2 cellulitis. Data reviewed: vital signs, nurses notes. Counseling: I had a detailed discussion with the patient and/or guardian regarding: the historical points, exam findings, and any diagnostic results supporting the discharge/admit diagnosis, the presence of at least one elevated blood pressure reading (>120/80) during this emergency department visit, the need for outpatient follow up. Response to treatment: the patient's symptoms have resolved after treatment. 10/28 01:33 Order name: CBC w/o diff; Complete Time: 02:09 [facility] 10/28 01:33 Order name: PT-INR; Complete Time: 02:09 [facility] 10/28 01:33 Order name: CMP de2 Administered Medications: 01:43 Drug: Ativan 1 mg Route: PO; ea 02:52 Follow up: Response: No adverse reaction rv 02:17 Not Given (PATIENT CLAIMED TO HAVE TETANUS LAST SEPTEMBER OF THIS YEAR): Tetanus-Diphtheria rv Toxoid Adult 0.5 ml IM once Disposition: 10/29/19 02:40 Discharged to Home. Impression: Abrasion, right lower leg. - Condition is Stable. - Discharge Instructions: Abrasion, Snake Bite. - Prescriptions for Benadryl 25 mg Oral Capsule - take 1 capsule by ORAL route every 6 hours As needed; 30 tablet. Diclofenac Sodium 75 mg Oral Tablet Sustained Release - take 1 tablet by ORAL route 2 times per day; 30 tablet. - Medication Reconciliation Form, Thank You Letter, Antibiotic Education, Prescription Opioid Use form. - Follow up: Private Physician; When: Tomorrow; Reason: If symptoms return, Continuance of care. Signatures: Dispatcher [employer] EDJose Tee RN RN sg Kimberly Pierce RN RN ea Alzahri, Mohammad, MD MD ma2 Luis Rossi RN rv Corrections: (The following items were deleted from the chart) 02:52 02:40 10/29/2019 02:40 Discharged to Home. Impression: Abrasion, right lower leg. sg Condition is Stable. Discharge Instructions: Abrasion, Snake Bite. Prescriptions for Benadryl 25 mg Oral Capsule - take 1 capsule by ORAL route every 6 hours As needed; 30 tablet, Diclofenac Sodium 75 mg Oral Tablet Sustained Release - take 1 tablet by ORAL route 2 times per day; 30 tablet. and Forms are Medication Reconciliation Form, Thank You Letter, Antibiotic Education, Prescription Opioid Use. Follow up: Private Physician; When: Tomorrow; Reason: If symptoms return, Continuance of care. ma2
--- NOTE | 2019-11-04 12:53 | ER ---
Nurse's Notes [facility] Name: Enrique Fuentes Age: 29 yrs Sex: Male : 1990 Arrival Date: 10/29/2019 Time: :23 Bed 6 Private MD: Diagnosis: Abrasion, right lower leg Presentation: 10/28 01:28 Chief complaint: Patient states: I was bit by a sylvia back rattlesnake before I got sg here. I dont know where at on my foot though, I dont know if it was my left foot or my right foot. No obvious signs of a bite or envenomation noted at this time. Coronavirus screen: Proceed with normal triage. Ebola Screen: Patient negative for fever greater than or equal to 101.5 degrees Fahrenheit, and additional compatible Ebola Virus Disease symptoms Patient denies exposure to infectious person. Patient denies travel to an Ebola-affected area in the 21 days before illness onset. No symptoms or risks identified at this time. Initial Sepsis Screen: Does the patient meet any 2 criteria? No. Patient's initial sepsis screen is negative. Does the patient have a suspected source of infection? No. Patient's initial sepsis screen is negative. Risk Assessment: Do you want to hurt yourself or someone else? Patient reports no desire to harm self or others. Onset of symptoms was October 29, 2019. Care prior to arrival: None. 01:28 Method Of Arrival: Ambulatory sg 01:28 Note the pt is observed to be holding his cellphone up to the right ear, not speaking sg to anyone on the phone at this time. pt removed both shoes for assessment, no obvious signs of any trauma or injury noted, no swelling or redness assessed. pt states " Im not sure what foot or where it bit me.". 01:28 Acuity: RASHID 3 sg 01:28 Note abrasion noted to the right lower leg, calf area, not bleeding, appears clean and sg scabbed over. Triage Assessment: 02:21 Bite description: bite sustained to RIGHT LEG, (QUESTIONABLE) by a snake, animal rv information: vaccination(s) is not applicable. Bite description: bite is superficial, SMALL SCRATCH OR ABRASION. General: Behavior is calm, cooperative. Historical: - Allergies: 01:24 No Known Allergies; sg - PMHx: 01:24 Anxiety; Paranoia; sg - PSHx: 01:24 None; sg - Immunization history:: Adult Immunizations unknown. - Social history:: Smoking status: Patient reports the use of cigarette tobacco products, Patient/guardian denies using alcohol, street drugs, The patient lives with family. - Family history:: not pertinent. Screenin:21 Abuse screen: Denies threats or abuse. Denies injuries from another. Nutritional rv screening: No deficits noted. Tuberculosis screening: No symptoms or risk factors identified. Fall Risk None identified. Assessment: 01:46 Reassessment: CALLED POISON CONTROL, . rv 02:19 General: Appears unkempt, Behavior is calm, cooperative. Pain: Denies pain. Neuro: rv Level of Consciousness is awake, alert, obeys commands, Oriented to person, place, time, situation. Cardiovascular: Patient's skin is warm and dry. Rhythm is regular. Respiratory: Airway is patent Respiratory effort is even, unlabored. GI: No signs and/or symptoms were reported involving the gastrointestinal system. : No signs and/or symptoms were reported regarding the genitourinary system. EENT: No signs and/or symptoms were reported regarding the EENT system. Derm: Skin is intact, Skin is pink, warm \\T\\ dry. normal, NOTED A SMALL SCRATCH ON THE RIGHT LOWER LEG, MEDIAL. 02:51 Reassessment: NO CHANGES IN THE BITE AREA. NO SWELLING OR REDNESS NOTED. NO PUNCTURE rv WOUND. Vital Signs: 01:28 BP 117 / 60; Pulse 108; Resp 16; Temp 97.7; Pulse Ox 100% on R/A; Pain 6/10; sg 02:47 BP 121 / 68; Pulse 89; Resp 16; Temp 97.8; Pulse Ox 100% on R/A; rv ED Course: 01:23 Patient arrived in ED. ds1 01:25 Arm band placed on. sg 01:27 Jerilyn Matthews MD is Attending Physician. ma2 01:30 Luis Rossi RN is Primary Nurse. rv 01:30 Triage completed. sg 02:00 Inserted saline lock: 20 gauge in right antecubital area, using aseptic technique. rv Blood collected. 02:00 Initial lab(s) drawn, by me, sent to lab. rv 02:21 Patient has correct armband on for positive identification. residential monitor on. Pulse rv ox on. NIBP on. 02:52 No provider procedures requiring assistance completed. IV discontinued, intact, rv bleeding controlled, No redness/swelling at site. Pressure dressing applied. Administered Medications: 01:43 Drug: Ativan 1 mg Route: PO; ea 02:52 Follow up: Response: No adverse reaction rv 02:17 Not Given (PATIENT CLAIMED TO HAVE TETANUS LAST SEPTEMBER OF THIS YEAR): Tetanus-Diphtheria rv Toxoid Adult 0.5 ml IM once Outcome: 02:40 Discharge ordered by MD. lui 02:52 Discharged to home ambulatory. rv 02:52 Condition: good 02:52 Discharge instructions given to patient, Instructed on discharge instructions, follow up and referral plans. medication usage, Demonstrated understanding of instructions, follow-up care, medications, Prescriptions given X 2. 02:52 Patient left the ED. sg Signatures: Jose Garcia RN RN Shanta Bonilla1 Kimberly Pierce RN RN Jerilyn Sanchez MD MD ma2 Vicente, Ronaldo, RN RN rv Corrections: (The following items were deleted from the chart) 01:34 01:28 Acuity: RASHID 5 sg sg
== END 2019-10-29 02:52 | disposition home or self-care (01) ==
LOC: ER 01:22
DX: S80.811A Abrasion, right lower leg, initial encounter (principal); Z72.0 Tobacco use
CPT/HCPCS: 36415; 80053; 85027; 85610; 90714; 99284

== ENCOUNTER 2020-05-18 07:47 | Emergency (ER) | payer SELFPAY ==
--- OUTSIDE RECORDS SUMMARY | 2020-05-18 07:57 | XMS REPORT | Continuity of Care Document ---
:1990 Author Organization [facility] t Address [address] [place] [address] Care Team Providers Name Role Phone Unavailable Unavailable Unavailable Problems This patient has no known problems. Allergies, Adverse Reactions, Alerts This patient has no known allergies or adverse reactions. Medications This patient has no known medications. Procedures This patient has no known procedures. Encounters Start End Encounter Admission Attending Care Care Encounter Source Date/Time Date/Time Type Type Clinicians Facility Department ID 2020-05-17 2020-05-17 Emergency E [id number] [facility] 15:50:00 15:50:00 2020-05-17 2020-05-17 Emergency E [facility] [id number] [facility] 07:33:00 07:33:00 2020-05-16 2020-05-16 Emergency E [facility] [id number] [facility] 23:51:00 23:51:00 Results This patient has no known results.
[2020-05-18 08:34] LABS: Basophils % 0.9 % (0-1.3); Hematocrit 47.5 % (39.6-49.0); Lymphocytes % 19.2 % (15.3-44.8); MPV 7.8 fL (7.6-11.3); RBC Red Blood Cell Count 5.28 M/uL (4.33-5.43)
--- NOTE | 2020-05-18 08:41 | ER ---
Nurse's Notes [facility] Name: Enrique Fuentes Age: 29 yrs Sex: Male : 1990 Arrival Date: 05/18/2020 Time: 07:49 Bed 6 Private MD: Diagnosis: Rectal bleeding;Prostatitis Presentation: 05/18 07:57 Chief complaint: Patient states: abd spasms for months and had some rectal bleeding a iw couple days ago, was seen at [facility] and had labs done. Coronavirus screen: At this time, the client does not indicate any symptoms associated with coronavirus-19. Ebola Screen: Patient negative for fever greater than or equal to 101.5 degrees Fahrenheit, and additional compatible Ebola Virus Disease symptoms Patient denies exposure to infectious person. Patient denies travel to an Ebola-affected area in the 21 days before illness onset. No symptoms or risks identified at this time. Initial Sepsis Screen: Does the patient meet any 2 criteria? No. Patient's initial sepsis screen is negative. Does the patient have a suspected source of infection? No. Patient's initial sepsis screen is negative. Risk Assessment: Do you want to hurt yourself or someone else? Patient reports no desire to harm self or others. Onset of symptoms was May 16, 2020. 07:57 Method Of Arrival: Ambulatory iw 07:57 Acuity: RASHID 3 iw Historical: - Allergies: 08:02 No Known Allergies; iw - PMHx: 08:00 Anxiety; Paranoia; iw - PSHx: 08:00 None; iw Screenin:10 Abuse screen: Denies threats or abuse. Nutritional screening: No deficits noted. vg1 Tuberculosis screening: No symptoms or risk factors identified. Fall Risk No fall in past 12 months (0 pts). No secondary diagnosis (0 pts). IV access (20 points). Ambulatory Aid- None/Bed Rest/Nurse Assist (0 pts). Gait- Normal/Bed Rest/Wheelchair (0 pts) Mental Status- Oriented to own ability (0 pts). Total Flowers Fall Scale indicates No Risk (0-24 pts). Assessment: 08:00 General: Appears in no apparent distress. Behavior is calm, cooperative. Pain: Denies vg1 pain. Neuro: Level of Consciousness is awake, alert, obeys commands, Oriented to person, place, time. Cardiovascular: Capillary refill < 3 seconds Patient's skin is warm and dry. Respiratory: Airway is patent Respiratory effort is even, unlabored, Respiratory pattern is regular, symmetrical. GI: Bowel sounds present X 4 quads. Abd is soft and non tender X 4 quads. : No signs and/or symptoms were reported regarding the genitourinary system. EENT: No signs and/or symptoms were reported regarding the EENT system. Derm: Skin is pink, warm \T\ dry. Musculoskeletal: Range of motion: intact in all extremities. Vital Signs: 08:11 BP 143 / 98; Pulse 87; Resp 16; Temp 98.0; Pulse Ox 100% on R/A; iw 09:00 BP 120 / 81; Pulse 80; Resp 14; Pulse Ox 99% on R/A; vg1 ED Course: 07:49 Patient arrived in ED. as 07:49 Jarocho Reza MD is Attending Physician. ps1 07:55 Pili Blake RN is Primary Nurse. vg1 07:58 Served as a radiation oncology manager during rectal exam. vg1 07:59 Triage completed. iw 08:03 Arm band placed on. iw 08:20 Patient has correct armband on for positive identification. Call light in reach. Pulse vg1 ox on. NIBP on. 08:20 Inserted saline lock: 22 gauge in left wrist, using aseptic technique. Blood collected. vg1 08:23 Initial lab(s) drawn, by me, sent to lab. vg1 08:39 Osmani Teixeira MD is Referral Physician. ps1 09:08 ED physician to see patient. vg1 09:15 IV discontinued, intact, bleeding controlled, No redness/swelling at site. Pressure vg1 dressing applied. Administered Medications: No medications were administered Outcome: 08:40 Discharge ordered by . ps1 09:16 Discharged to home ambulatory. vg1 09:16 Condition: stable 09:16 Discharge instructions given to patient, Instructed on discharge instructions, follow up and referral plans. Demonstrated understanding of instructions, follow-up care. 09:16 Patient left the ED. vg1 Signatures: Lena Lou Irene, RN RN iw Jarocho Reza MD MD ps1 Pili Blake RN RN vg1
--- NOTE | 2020-05-18 08:41 | EDPHYS ---
Physician Documentation [facility] Name: Enrique Fuentes Age: 29 yrs Sex: Male : 1990 Arrival Date: 05/18/2020 Time: 07:49 Bed 6 Private MD: ED Physician Jarocho Reza HPI: 05/18 08:02 This 29 yrs old Male presents to ER via Ambulatory with complaints of ps1 Abdominal Pain, Rectal Bleeding. 08:02 patient states that his symptoms have been ongoing for months. Was previously seen and ps1 evaluated for same complaint, had labs and CT and patient said the results were not discussed with him so he is here again for the results. He additionally was seen at [facility] 2 days ago for a " hemorrhage" . Was discharged at that time without imaging. He states that his abdominal pain is generalized. Non-radiating. Story is obscure. Exhibiting paranoia. . Historical: - Allergies: 08:02 No Known Allergies; iw - PMHx: 08:00 Anxiety; Paranoia; iw - PSHx: 08:00 None; iw ROS: 08:02 Constitutional: Negative for fever, chills, and weight loss, Eyes: Negative for injury, ps1 pain, redness, and discharge, Cardiovascular: Negative for chest pain, palpitations, and edema, Respiratory: Negative for shortness of breath, cough, wheezing, and pleuritic chest pain, MS/Extremity: Negative for injury and deformity, Skin: Negative for injury, rash, and discoloration, Neuro: Negative for headache, weakness, numbness, tingling, and seizure. 08:02 Abdomen/GI: Positive for abdominal pain, rectal bleeding. Exam: 08:02 Constitutional: This is a well developed, well nourished patient who is awake, alert, ps1 and in no acute distress. Head/Face: Normocephalic, atraumatic. Eyes: Pupils equal round and reactive to light, extra-ocular motions intact. Lids and lashes normal. Conjunctiva and sclera are non-icteric and not injected. Cardiovascular: Regular rate and rhythm. No gallops, murmurs, or rubs. Normal PMI, no JVD. No pulse deficits. Respiratory: Lungs have equal breath sounds bilaterally, clear to auscultation and percussion. No rales, rhonchi or wheezes noted. No increased work of breathing, no retractions or nasal flaring. MS/ Extremity: Pulses equal, no cyanosis. Neurovascular intact. Full, normal range of motion. Neuro: Awake and alert, GCS 15, oriented to person, place, time, and situation. Cranial nerves II-XII grossly intact. Sensory grossly intact. 08:02 Abdomen/GI: Inspection: abdomen appears normal, Bowel sounds: normal, Rectal exam: Stool: guaiac positive, hemorrhoid(s), are not appreciated, the exam is chaperoned by the nurse. Vital Signs: 08:11 BP 143 / 98; Pulse 87; Resp 16; Temp 98.0; Pulse Ox 100% on R/A; iw 09:00 BP 120 / 81; Pulse 80; Resp 14; Pulse Ox 99% on R/A; vg1 MDM: 08:11 Patient medically screened. ps1 08:41 Data reviewed: vital signs, nurses notes, lab test result(s), and as a result, I will ps1 discharge patient. Counseling: I had a detailed discussion with the patient and/or guardian regarding: the historical points, exam findings, and any diagnostic results supporting the discharge/admit diagnosis, lab results, the need for outpatient follow up, for definitive care. 09:00 ED course: labs reviewed. Multiple ED visits for same. Needs OP follow up with GI for ps1 further evaluation and management. Last CT done had no findings related to his complaint. Normal labs today. Stable for discharge. . 05/18 08:00 Order name: Basic Metabolic Panel; Complete Time: 08:59 ps1 05/18 08:59 Interpretation: Within normal limits: BUN 12; CRE 0.75. ps1 05/18 08:00 Order name: CBC with Diff; Complete Time: 08:38 ps1 05/18 08:42 Interpretation: HGB 16.5; PLT 309. ps1 05/18 08:00 Order name: Hepatic Function; Complete Time: 08:59 ps1 05/18 08:59 Interpretation: Within normal limits: AST 30; ALT 58; ALK 65. ps1 05/18 08:00 Order name: Lipase; Complete Time: 08:59 ps1 05/18 08:00 Order name: IV Saline Lock; Complete Time: 08:27 ps1 05/18 08:31 Order name: Occult Blood--Ancillary bd 05/18 08:00 Order name: Labs collected and sent; Complete Time: 08:27 ps1 Administered Medications: No medications were administered Disposition: 05/18/20 08:40 Discharged to Home. Impression: Rectal bleeding, Prostatitis. - Condition is Stable. - Discharge Instructions: High-Fiber Diet, Prostatitis, [id number]. - Medication Reconciliation Form, Thank You Letter, Antibiotic Education, Prescription Opioid Use form. - Follow up: Osmani Teixeira MD; When: As needed; Reason: Recheck today's complaints. Follow up: Emergency Department; When: As needed; Reason: Fever > 102 F, Worsening of condition. - Problem is chronic. - Symptoms are unchanged. Signatures: Dispatcher [employer] EDMS Philomena Nelson RN RN iw Jarocho Reza MD MD ps1 Pili Blake RN RN vg1 Corrections: (The following items were deleted from the chart) 08:43 08:42 Within normal limits: HGB 16.5. ps1 ps1 09:16 08:40 05/18/2020 08:40 Discharged to Home. Impression: Rectal bleeding; Prostatitis. vg1 Condition is Stable. Forms are Medication Reconciliation Form, Thank You Letter, Antibiotic Education, Prescription Opioid Use. Follow up: Osmani Teixeira; When: As needed; Reason: Recheck today's complaints. Follow up: Emergency Department; When: As needed; Reason: Fever > 102 F, Worsening of condition. Problem is chronic. Symptoms are unchanged. ps1
[2020-05-18 08:59] LABS: ALT/SGPT 58 U/L (12-78); AST/SGOT 30 U/L (15-37); Albumin 3.8 g/dL (3.4-5.0); Alkaline Phosphatase 65 U/L (45-117); BUN Blood Urea Nitrogen 12 mg/dL (7-18); Bicarbonate 28 mmol/L (21-32); Bilirubin Direct 0.1 mg/dL (0-0.2); Bilirubin Total 0.4 mg/dL (0.2-1.0); Glucose Level 101 mg/dL (74-106); Lipase 153 U/L (73-393); Potassium 4.1 mmol/L (3.5-5.1); Protein, Total 8.2 g/dL (6.4-8.2); Sodium Level 139 mmol/L (136-145)
[2020-05-21 07:42] VITALS: TEMP 98
[2020-05-21 07:43] VITALS: BP 120/81; O2SAT 99
== END 2020-05-18 09:16 | disposition home or self-care (01) ==
LOC: ER 07:47
DX: N41.9 Inflammatory disease of prostate, unspecified (principal)
CPT/HCPCS: 36415; 80048; 80076; 82272; 83690; 85025; 99284

== ENCOUNTER 2023-10-12 11:33 | Emergency (ER) | payer SELFPAY ==
--- NOTE | 2023-10-12 11:56 | EDPHYS ---
Physician Documentation [facility] Name: Enrique Fuentes Age: 33 yrs Sex: Male : 1990 Arrival Date: 10/12/2023 Time: 11:33 Bed IW4 Private MD: ED Physician Ector Persaud HPI: 10/11 11:53 This 33 yrs old Male presents to ER via Ambulatory with complaints of Medication Refill.ms3 11:53 33-year-old male with past medical history of schizophrenia presents to the emergency ms3 department as he was discharged from [facility] with a 1 night supply of olanzapine. Patient's mother states he was instructed to follow-up with [facility] and they do not have an appointment available until November. Patient denies suicidal ideation, homicidal ideation, hallucinations.. Historical: - Allergies: 11:47 No Known Allergies; ph - PMHx: 11:47 Anxiety; Paranoia; ph - Immunization history:: Adult Immunizations unknown. - Infectious Disease History:: Denies. - Social history:: Smoking status: Patient denies any tobacco usage or history of. ROS: 11:53 Constitutional: Negative for fever, and chills. Neck: Negative for injury, pain, and ms3 swelling, Cardiovascular: Negative for chest pain, and palpitations. Respiratory: Negative for shortness of breath, cough, wheezing, and pleuritic chest pain, Abdomen/GI: Negative for abdominal pain, nausea, vomiting, diarrhea, and constipation, Skin: Negative for injury, rash, and discoloration, Exam: 11:53 Constitutional: This is a well developed, well nourished patient who is awake, alert, ms3 and in no acute distress. Head/Face: Normocephalic, atraumatic. Chest/axilla: Normal chest wall appearance and motion. Nontender with no deformity. Cardiovascular: Regular rate and rhythm with a normal S1 and S2. No gallops, murmurs, or rubs. Normal PMI, no JVD. No pulse deficits. Respiratory: Lungs have equal breath sounds bilaterally, clear to auscultation and percussion. No rales, rhonchi or wheezes noted. No increased work of breathing, no retractions or nasal flaring. Abdomen/GI: Soft, non-tender, with normal bowel sounds. No distension or tympany. No guarding or rebound. No evidence of tenderness throughout. Skin: Warm, dry with normal turgor. Normal color with no rashes, no lesions, and no evidence of cellulitis. 11:53 Psych: Exam negative for acute changes, hallucinations, delusions, inappropriate ms3 behavior, psychosis, paranoia, Vital Signs: 11:45 BP 114 / 69; Pulse 101; Resp 18; Temp 98.2; Pulse Ox 100% on R/A; Weight 86.18 kg; ph Height 5 ft. 10 in. ; 11:45 Body Mass Index 27.26 (86.18 kg, 177.8 cm) ph MDM: 11:45 Patient medically screened. ms3 11:53 Data reviewed: vital signs, nurses notes, and as a result, I will discharge patient. ms3 Historians other than the Patient: Parent: Patient's mother. Care significantly affected by the following chronic conditions: Schizophrenia. Counseling: I had a detailed discussion with the patient and/or guardian regarding the historical points, exam findings, and any diagnostic results supporting the discharge/admit diagnosis, the need for outpatient follow up, to return to the emergency department if symptoms worsen or persist or if there are any questions or concerns that arise at home. Special discussion: I discussed with the patient/guardian in detail that at this point there is no indication for admission to the hospital. It is understood, however, that if the symptoms persist or worsen the patient needs to return immediately for re-evaluation. ED course: Patient given prescription for his olanzapine prescription. All questions were answered. Patient to follow-up with [facility] at next available appointment. Return precautions discussed include worsening symptoms, or any other concerns. Administered Medications: No medications were administered Disposition Summary: 10/12/23 11:56 Discharge Ordered Notes: Location: Home ms3 Condition: Stable ms3 Diagnosis - Schizophrenia, unspecified ms3 Followup: ms3 - With: Ronnie Yee MD - When: 2 - 3 days - Reason: Recheck today's complaints Discharge Instructions: - Discharge Summary Sheet ms3 - Schizophrenia ms3 Forms: - Medication Reconciliation Form ms3 - Antibiotic Education ms3 - Prescription Opioid Use ms3 - Patient Portal Instructions ms3 - Leadership Thank You Letter ms3 Prescriptions: - olanzapine 10 mg Oral tablet - take 1 tablet ORAL route 2 times per day; 60 tablet; Refills: 0, Product ms3 Selection Permitted Signatures: Bonnie Clark, RN RN ph Cori, Ector, DO DO ms3
--- NOTE | 2023-10-12 11:56 | ER ---
Nurse's Notes [facility] Name: Enrique Fuentes Age: 33 yrs Sex: Male : 1990 Arrival Date: 10/12/2023 Time: 11:33 Bed IW4 Private MD: Diagnosis: Schizophrenia, unspecified Presentation: 10/11 11:45 Chief complaint: Patient states: Recently dx fro [facility], was not prescribed ph medication, instructed to follow up w/ [facility] but no appointments until November. Takes olanzapine 10 mg. Coronavirus screen: Vaccine status: Patient reports receiving the 2nd dose of the covid vaccine. Ebola Screen: No symptoms or risks identified at this time. Initial Sepsis Screen: Does the patient meet any 2 criteria? No. Patient's initial sepsis screen is negative. Does the patient have a suspected source of infection? No. Patient's initial sepsis screen is negative. Risk Assessment: Do you want to hurt yourself or someone else? Patient reports no desire to harm self or others. Onset of symptoms was October 12, 2023. 11:45 Method Of Arrival: Ambulatory ph 11:45 Acuity: RASHID 5 ph Historical: - Allergies: 11:47 No Known Allergies; ph - PMHx: 11:47 Anxiety; Paranoia; ph - Immunization history:: Adult Immunizations unknown. - Infectious Disease History:: Denies. - Social history:: Smoking status: Patient denies any tobacco usage or history of. Screenin:13 [facility] ED Fall Risk Assessment (Adult) History of falling in the last 3 months, ph including since admission No falls in past 3 months (0 pts) Confusion or Disorientation No (0 pts) Intoxicated or Sedated No (0 pts) Impaired Gait No (0 pts) Mobility Assist Device Used No (0 pt) Altered Elimination No (0 pt) Score/Fall Risk Level 0 - 2 = Low Risk Oriented to surroundings, Maintained a safe environment. Abuse screen: Denies threats or abuse. Denies injuries from another. Nutritional screening: No deficits noted. Tuberculosis screening: No symptoms or risk factors identified. Assessment: 12:12 General: Appears in no apparent distress. Behavior is calm, cooperative, appropriate ph for age. Pain: Denies pain. Neuro: Level of Consciousness is awake, alert, obeys commands, Oriented to person, place, time, situation. Vital Signs: 11:45 BP 114 / 69; Pulse 101; Resp 18; Temp 98.2; Pulse Ox 100% on R/A; Weight 86.18 kg; ph Height 5 ft. 10 in. ; 11:45 Body Mass Index 27.26 (86.18 kg, 177.8 cm) ph ED Course: 11:36 Patient arrived in ED. mr 11:45 Ector Persaud DO is Attending Physician. ms3 11:47 Triage completed. ph 11:48 Arm band placed on Patient placed in waiting room, Patient notified of wait time. ph 11:55 Ronnie Yee MD is Referral Physician. ms3 12:12 Bonnie Clark, RN is Primary Nurse. ph 12:13 Patient has correct armband on for positive identification. ph 12:13 No provider procedures requiring assistance completed. Patient did not have IV access ph during this emergency room visit. Administered Medications: No medications were administered Medication: 12:13 VIS not applicable for this client. ph Outcome: 11:56 Discharge ordered by MD. ms3 12:13 Discharged to home ambulatory, ph 12:13 Condition: good 12:13 Discharge instructions given to patient, Instructed on discharge instructions, follow up and referral plans. medication usage, Demonstrated understanding of instructions, follow-up care, medications, Prescriptions given X 1, 12:14 Patient left the ED. ph Signatures: Blanche Mayen, Issa Reg mr Bonnie Clark, RN RN Ector Persaud DO DO ms3
[2023-10-12 12:31] VITALS: BP 114/69; TEMP 98.2; O2SAT 100
== END 2023-10-12 12:14 | disposition home or self-care (01) ==
LOC: ER 11:33
DX: F20.9 Schizophrenia, unspecified (principal)
CPT/HCPCS: 99283